=== PATIENT | female | born 1950 | race Two or more races ===

== ENCOUNTER 2016-09-11 14:29 | Emergency (ER) | payer MEDICARE ==
--- NOTE | ~2016-09-11 | ER ---
PATIENT'S NAME: MANDA FLOOD [facility] AGE: 66 Y [address] ROOM: [place] [id number] LOCATION: ED ADMIT DATE: 09/11/2016 ER/Outpatient Report DISCHARGE DATE: 09/11/2016 FAMILY PHYSICIAN: Ortiz Cha MD ATTENDING PHYSICIAN: Florentino Jaramillo CHIEF COMPLAINT: Dizziness, fatigue, and shortness of breath. HISTORY OF PRESENT ILLNESS: Ms. Flood notes that she has had symptoms for 1 to 2 months. They have progressively worsened over that time. There was nothing particularly new, but she felt worse today than she has before. She states that she is short of breath all the time and has chest pain which has been present for months and has been recurrent. It is unclear when the last time she was chest pain-free. She has a history of diabetes and has not been taking any medications for it. She has not seen anyone prior to this encounter. She does not take her metformin because of a commercial on TV. No other particular complaints. She denies vomiting, nausea, loss of balance, falls, weight loss, or other concerning symptoms. PAST MEDICAL HISTORY: Documented on the record and reviewed by me. SOCIAL HISTORY: Documented on the record and reviewed by me. MEDICATIONS: Documented on the record and reviewed by me. ALLERGIES: DOCUMENTED ON THE RECORD AND REVIEWED BY ME. REVIEW OF SYSTEMS: All systems are reviewed and negative except as noted in the HPI. PHYSICAL EXAMINATION: VITAL SIGNS: Blood pressure is initially 215/110, rapidly improved to normal 127/74, pulse of 96, respiratory rate is 20, temperature 98.1, and SpO2 is 99% on room air. Pain is rated at 4/10. GENERAL: An age-appropriate female, tired appearance, recumbent on exam table, in no apparent pain or distress. NEUROLOGIC: Awake and alert. GCS is 15. No nystagmus. No gait abnormalities. No coordination deficits. No focal deficits or asymmetry on exam. PATIENT'S NAME: MANDA FLOOD [facility] AGE: 66 Y [address] ROOM: [place] [address] LOCATION: ED ADMIT DATE: 09/11/2016 ER/Outpatient Report DISCHARGE DATE: 09/11/2016 FAMILY PHYSICIAN: Ortiz Cha MD ATTENDING PHYSICIAN: Florentino Jaramillo HEENT: Normocephalic, atraumatic. Eyes are PERRL. Oropharynx is clear. NECK: Supple. Trachea is midline. CHEST: Heart is regular rate and rhythm with no murmurs. LUNGS: Clear to auscultation bilateral in the upper lung lopez. Faint crackles at the bases bilateral. ABDOMEN: Soft, nontender, and nondistended. No rebound or guarding. BACK: Normal to inspection and palpation. EXTREMITIES: Warm and well-perfused. No appreciated erythema or edema. SKIN: Clean and intact. LABS AND X-RAYS: Chest x-ray is unremarkable per my review. No infiltrate or vascular prominence. INR is less than 1. CMS with no appreciable abnormality other than a glucose of 249. Renal function is appropriate. Troponin is undetectable. Pro-BNP is undetectable. Beta-hydroxybutyrate is elevated at 4.0. Urinalysis with glucosuria, but no leukocytes, nitrites, or blood. TSH is 0.703. Free T4 is 1.1. CBC with no appreciable abnormalities. Venous blood gas pH 7.46, pCO2 is 34, and lactate is 3.0. EKG is sinus rhythm, rate of 80 with normal intervals and axis. Some scant baseline variation, but no appreciated ischemia. IMPRESSION: 1. Chronic fatigue, unclear etiology. 2. Unexplained crackles at the lungs. 3. Uncontrolled diabetes. EMERGENCY DEPARTMENT COURSE: The patient was seen and evaluated as above. No clear etiology for symptoms today. The patient is hemodynamically stable. Blood pressure trended down nicely with no intervention. She was given a prescription for metformin to take. Discussed the case with Dr. Cha, the patient's primary care provider, and the patient was instructed to see him as soon as possible in the clinic for further evaluation. The patient should return if her symptoms acutely worsen or she develops other new or concerning symptoms. MD JOAQUIN REYNOSO/modl /[id number] d: 09/12/16 0057 t: 09/20/16 0722, OUTPATIENT REPORT
[~2016-09-11 14:29] MED LIST: GLUCOPHAGE XR500 M1 PO; JANUVIA 100 MG100 MG PO; MOBIC7.5 MG PO; PROTONIX20 MG PO; TYLENOL325 MG PO; WELLBUTRIN SR150 MG PO; WELLBUTRIN XL150 M1 PO
[2016-09-11 15:10] LABS: BICARBONATE 24.2 mmol/L (18.0-23.0); PCO2 34 mmHg (35-45); PO2 30 mmHg (80-90)
[2016-09-11 15:15] LABS: BASOPHIL % 0.8 %; EOSINOPHIL # 0.1 K/uL (0.0-0.5); EOSINOPHIL % 2.2 %; HEMATOCRIT 41.1 % (33.0-46.0); HEMOGLOBIN 13.7 g/dL (10.0-15.0); IMMATURE GRANULOCYTE % 0.2 %; LYMPHOCYTE # 2.3 K/uL (0.8-4.0); LYMPHOCYTE % 46.1 %; MCH 29.6 pg (27.0-34.0); MCHC 33.3 gm/dL (32.0-36.5); MCV 88.8 fl (83.0-98.0); MONOCYTE # 0.4 K/uL (0.0-1.0); MONOCYTE % 7.6 %; MPV 10.6 fl (9.4-12.4); NEUTROPHIL # (ANC) 2.2 K/uL (1.8-7.8); NEUTROPHIL % 43.1 %; NRBC % 0 /100WBC (0-0.00); PLATELET COUNT 156 K/uL (150-450); RBC 4.63 M/uL (3.50-5.50); RDW-CV 12.9 % (11.9-14.6)
[2016-09-11 15:31] LABS: ALBUMIN 3.7 gm/dL (3.5-5.0); ALK PHOS 112 IU/L (33-138); ALT 52 IU/L (12-78); ANION GAP 13.9 (10.0-19.0); AST 40 IU/L (10-40); BLOOD UREA NITROGEN 11 mg/dL (6-24); CALCIUM 9.1 mg/dL (8.5-10.5); CHLORIDE 104 mMol/L (96-110); CO2 23 mMol/L (22-32); CREATININE 0.7 mg/dL (0.5-1.1); POTASSIUM 3.9 mMol/L (3.7-5.1); SODIUM 137 mMol/L (135-145); TOTAL BILIRUBIN 0.6 mg/dL (0.0-1.5)
[2016-09-11 15:35] LABS: INR - (THERAPEUTIC) 0.98 (0.92-1.07); PROTIME 10.3 SECONDS (9.8-11.4)
[2016-09-11 15:49] LABS: BILIRUBIN URINE NEGATIVE (NEGATIVE); BLOOD URINE NEGATIVE /UL (NEGATIVE); COLOR URINE YELLOW (YELLOW); GLUCOSE URINE 1000 mg/dL (NEGATIVE); KETONE URINE 5 mg/dL (NEGATIVE); LEUKOCYTES URINE NEGATIVE /UL (NEGATIVE); NITRITE URINE NEGATIVE (NEGATIVE); PROTEIN URINE 15 mg/dL (NEGATIVE); TURBIDITY URINE CLEAR (CLEAR); UROBILINOGEN URINE NORMAL (NORMAL)
[2016-09-11 15:58] LABS: BACTERIA URINE FEW (NEGATIVE); RBC URINE NEGATIVE #/HPF (NEGATIVE); WBC CLUMPS URINE RARE (NEGATIVE)
== END 2016-09-11 17:03 | disposition disaster alternative care site (69) ==
LOC: GMED 14:29
PROVIDERS: Emergency Medicine
DX: E11.65 Type 2 diabetes mellitus with hyperglycemia (principal); R09.89 Other specified symptoms and signs involving the circulatory and respiratory systems; R53.82 Chronic fatigue, unspecified; Z88.1 Allergy status to other antibiotic agents; Z98.890 Other specified postprocedural states